=== PATIENT | female | born 1935 | race Caucasian/White ===

== ENCOUNTER → 2016-11-04 | Outpatient (CLI) | payer OTHER, MEDICARE ==
--- NOTE | 2016-11-04 18:38 | US ---
HISTORY: Hip wound. 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 Study: Ultrasound-guided right hip aspiration. Comparison: None. Technique: Multiple felton scale images were obtained of the right hip. Findings: No significant fluid collection within the right hip. The visualized soft tissues are otherwise unre markable. Procedure: After the risks and benefits of the procedure were explained to the patient, including infection, bl eeding, and a possible enteric injury, informed consent was obtained. Utilizing ultrasound guidance the skin entry site was marked. A time-out was taken. Patient was then prepped and draped in normal sterile fashion. 1% lidocaine without epinephrine was utilized to anesthetize the skin and underlyin g soft tissues. A 20 gauge spinal needle was advanced to the right hip joint with a lateral approach . Approximately 2 cc of bloody fluid was obtained. The patient tolerated procedure well and left the department in stable in unchanged condition. IMPRESSION: Successful ultrasound-guided right hip aspiration. Reported By:
== END | disposition home or self-care (01) | DRG 923 ==
LOC: RAD 12:01
PROVIDERS: ATTEND Specialist
PROC: 0S993ZZ Drainage of Right Hip Joint, Percutaneous Approach (ICD-10-PCS; principal; 2016-11-04)
PROC: BQ40ZZZ Ultrasonography of Right Hip (ICD-10-PCS; 2016-11-04)
DX: T84.84XS Pain due to internal orthopedic prosthetic devices, implants and grafts, sequela (principal); Z96.641 Presence of right artificial hip joint; R79.1 Abnormal coagulation profile; B95.7 Other staphylococcus as the cause of diseases classified elsewhere
CPT/HCPCS: 36415; 76942; 85610; 85730; 87070; 87186